=== PATIENT | male | born 1940 ===

== ENCOUNTER 2021-07-01 08:16 | Outpatient (CLI) | payer OTHER | END 2021-07-01 08:21 | disposition home or self-care (01) | LOC: EDBD 08:16 → RX STUDY 08:16 | PROVIDERS: ATTEND Internal Medicine Gastroenterology | DX: K44.9 Diaphragmatic hernia without obstruction or gangrene (principal); K21.9 Gastro-esophageal reflux disease without esophagitis; R10.13 Epigastric pain ==

== ENCOUNTER → 2021-07-11 | Outpatient (CLI) | payer OTHER | END | disposition home or self-care (01) | LOC: TOM 08:00 | PROVIDERS: ATTEND Internal Medicine Gastroenterology | DX: K57.90 Diverticulosis of intestine, part unspecified, without perforation or abscess without bleeding (principal); Q61.01 Congenital single renal cyst; R10.13 Epigastric pain; N41.8 Other inflammatory diseases of prostate ==